=== PATIENT | male | born 1960 | race Hispanic/Latino ===

== ENCOUNTER 2019-08-29 10:06 | Emergency (ER) | payer OTHER | END 2019-08-29 10:58 | disposition home or self-care (01) | LOC: ERS 10:06 | DX: R09.89 Other specified symptoms and signs involving the circulatory and respiratory systems (principal); E11.9 Type 2 diabetes mellitus without complications; I10 Essential (primary) hypertension; F17.210 Nicotine dependence, cigarettes, uncomplicated; Z79.899 Other long term (current) drug therapy; Z79.84 Long term (current) use of oral hypoglycemic drugs; Z20.828 Contact with and (suspected) exposure to other viral communicable diseases | CPT/HCPCS: 87635; 99283; U0003 ==

== ENCOUNTER 2019-10-12 10:36 | Emergency (ER) | payer OTHER, SELFPAY ==
[~2019-10-12 10:36] MED LIST: Iopamidol-370 76% 500 ML 1 ML ONE
[2019-10-12] MEDS ORDERED: Acetaminophen 500 MG TAB ONE (10:58)
[2019-10-12 11:29] LABS: #Basophils 0.1 thou/uL (0.0-0.2); #Eosinphils 0.2 thou/uL (0.0-0.7); #Lymphocytes 2.6 thou/uL (1.20-3.40); #Monocytes 0.5 thou/uL (0.11-0.59); #Neutrophils 4.8 thou/uL (1.40-6.50); %Basophils 0.7 % (0.0-1.0); %Lymphocytes 32.5 % (21.0-51.0); %Monocytes 5.9 % (0.0-10.0); %Neutrophils 58.9 % (42.0-75.0); Hemoglobin 16.3 g/dL (14.0-18.0); Mean Corpuscular HGB CONC 33.4 g/dL (32.0-36.0); Mean Corpuscular Hemoglobin 29.9 pg (27.0-31.0); Mean Corpuscular Volume 89.5 fL (78.0-98.0); Mean Platelet Volume 8.9 fL (7.4-10.4); Platelet Count 159 thou/uL (130-400); RBC Distribution Width 11.5 % (11.5-14.5); Red Blood Cell (RBC) Count 5.47 mill/uL (4.70-6.10); White Blood Cell (WBC) Count 8.1 thou/uL (4.8-10.8)
--- NOTE | 2019-10-12 11:29 | CT ---
CT Abdomen Pelvis W Con History: Right-sided back pain Comparison: None. Findings: Lung bases are clear. No pericardial effusion. Diffuse hepatic steatosis. Gallbladder is normal as well as the gallbladder. Pancreas is normal. Extensive atherosclerotic plaque throughout the aorta with left 40-50% luminal narrowing just distal to the inferior mesenteric artery takeoff. Renal arteries are patent. Moderate plaque of both iliac vessels. Celiac trunk is patent. Superior mesenteric artery origin is patent. There is a focal 50-60% narrowin g of the SMA for length of 1 cm 5 mm after the ostia. No hydronephrosis. No abnormal renal enhancing mass. The inferior mesenteric artery origin has high-grade narrowing. No acute osseous abnormality. No free intraperitoneal gas or fluid. The appendix is visualized and is normal. Mild wall thickening of the descending colon. Impression: 1. Mild wall thickening in the descending colon consistent with low-grade colitis. Minimal pericoloni c stranding. 2. High-grade diffuse hepatic steatosis. 3. Normal appendix. 4. Extensive atherosclerotic plaque with mild-moderate luminal narrowing of both the SMA and MATILDA as w ell as the distal abdominal aorta.
[2019-10-12 11:45] LABS: ALT (SGPT) 24 U/L (8-55); AST (SGOT) 14 U/L (5-34); Albumin 4.1 g/dL (3.5-5.0); Alkaline Phosphatase 143 U/L (40-110); Anion Gap 13 mmol/L (10-20); BUN (Urea Nitrogen) 12 mg/dL (8.4-25.7); Bilirubin, Total 0.4 mg/dL (0.2-1.2); Calc. Creatinine Clearance 0 mL/min (70-130); Calcium 8.9 mg/dL (7.8-10.44); Carbon Dioxide 22 mmol/L (22-29); Chloride 102 mmol/L (98-107); Estimated GFR-MDRD Greater than 90; Globulin 3.2 g/dL (2.4-3.5); Glucose 239 mg/dL (70-105); Lipase 19 U/L (8-78); Potassium 3.8 mmol/L (3.5-5.1); Protein, Total 7.3 g/dL (6.0-8.3); Sodium 133 mmol/L (136-145)
[2019-10-12 12:37] LABS: Bilirubin Negative (Negative); Blood, Urine Negative (Negative); Clarity Clear (Clear); Glucose, Urine (Dipstick) 300 mg/dL (Negative); Ketone, Urine Negative (Negative); Leukocyte Negative Leu/uL (Negative); Nitrite Negative (Negative); Protein, Urine (Dipstick) Negative (Neg-Trace); Specific Gravity, Urine 1.035 (1.002-1.036); Urobilinogen Normal mg/dL (Less than 2); pH, Urine 6.5 (5.0-9.0)
== END 2019-10-12 12:24 | disposition home or self-care (01) ==
LOC: ERS 10:36
DX: K52.9 Noninfective gastroenteritis and colitis, unspecified (principal); E11.9 Type 2 diabetes mellitus without complications; I10 Essential (primary) hypertension; F17.210 Nicotine dependence, cigarettes, uncomplicated; Z79.899 Other long term (current) drug therapy
CPT/HCPCS: 74177; 80053; 81003; 83690; 84484; 85025; 93005; 96360; Q9967

== ENCOUNTER 2021-03-11 14:05 | Outpatient (CLI) | payer OTHER ==
[2021-03-11 15:44] LABS: Hemoglobin 14.6 g/dL (13.5-17.5); Mean Corpuscular HGB CONC 32.9 g/dL (32.0-36.0); Mean Corpuscular Hemoglobin 29.5 pg (27.0-33.0); Mean Corpuscular Volume 89.7 fl (81.2-95.1); Platelet Count 177 10x3/uL (150-450); RBC Distribution Width 12.3 % (11.5-14.5); Red Blood Cell (RBC) Count 4.95 10x6/uL (4.32-5.72); White Blood Cell (WBC) Count 8.8 10x3/uL (3.5-10.5)
[2021-03-11 16:15] LABS: PTT 26.5 sec (22.0-33.0); Prothrombin Time 10.7 sec (9.5-12.1)
[2021-03-11 16:20] LABS: Anion Gap 15 mmol/L (10-20); BUN (Urea Nitrogen) 16 mg/dL (8.4-25.7); Calc. Creatinine Clearance 0 mL/min (70-130); Calcium 9.5 mg/dL (7.8-10.44); Carbon Dioxide 27 mmol/L (22-29); Chloride 102 mmol/L (98-107); Glucose 154 mg/dL (70-105); Sodium 140 mmol/L (136-145)
[2021-03-12 02:55] LABS: SARS-CoV-2 PCR by NAA Not Detected (NotDetected)
== END 2021-03-11 14:06 | disposition home or self-care (01) ==
LOC: LABBT 14:05
PROVIDERS: ATTEND Surgery
DX: Z01.812 Encounter for preprocedural laboratory examination (principal); M54.16 Radiculopathy, lumbar region; M48.061 Spinal stenosis, lumbar region without neurogenic claudication; Z20.822 Contact with and (suspected) exposure to COVID-19
CPT/HCPCS: 80048; 85027; 85610; 85730; U0003; U0005

== ENCOUNTER 2021-03-14 07:23 | Observation (INO) | payer OTHER ==
[2021-03-11 15:29] VITALS: BMI 27.4
[2021-03-14] MEDS ORDERED: ceFAZolin 2 GM/DEX 5% 100 ML BAG ONE (08:03)
[2021-03-14] MEDS ORDERED: Midazolam HCl 2 mg/2 ml Vial ONE (09:51)
[2021-03-14] MEDS ORDERED: HYDROmorphone 2 MG/ML VIAL ONE (09:51)
[2021-03-14] MEDS ORDERED: Sodium Chloride 0.9% 10 ML ONE (09:51)
[2021-03-14] MEDS ORDERED: Fentanyl 100 MCG/2 ML VIAL ONE ×4 (09:51→14:57)
[2021-03-14] MEDS ORDERED: Acetaminophen 325 MG TAB PO PRN (10:08)
[2021-03-14] MEDS ORDERED: traMADol HCl 50 MG TAB PO PRN (10:08)
[2021-03-14] MEDS ORDERED: HYDROcodone/Acetaminophen 7.5/325 mg Tablet PO PRN (10:08)
[2021-03-14] MEDS ORDERED: Acetaminophen/Codeine 30-300mg Tablet PO PRN (10:08)
[2021-03-14] MEDS ORDERED: Morphine 4 MG/ML VIAL SLOW IVP PRN (10:08)
[2021-03-14] MEDS ORDERED: Metoclopramide HCl 10 MG/2 ML VIAL ONE (10:11)
[2021-03-14] MEDS ORDERED: PROPOFOL 200 MG/20 ML VIAL ONE ×2 (10:11)
[2021-03-14] MEDS ORDERED: ePHEDrine 50 MG/ML VIAL ONE (10:11)
[2021-03-14] MEDS ORDERED: Phenylephrine 10 MG/ML VIAL ONE (10:11)
[2021-03-14] MEDS ORDERED: Rocuronium Bromide 10 MG/ML (10ML VIAL) ONE (10:11)
[2021-03-14] MEDS ORDERED: Dexamethasone 20 MG/5 ML VIAL ONE (10:11)
[2021-03-14] MEDS ORDERED: tiZANidine HCl 4 MG TAB PO PRN (10:11)
[2021-03-14] MEDS ORDERED: Lidocaine 1% PF 5 ML VIAL ONE (10:11)
[2021-03-14] MEDS ORDERED: Ondansetron PF 4 MG/2 ML Vial ONE (10:11)
[2021-03-14] MEDS ORDERED: Glycopyrrolate 0.2 MG/ML 5 ML SYRINGE ONE (10:11)
[2021-03-14] MEDS ORDERED: hydrALAZINE 20 MG/ML VIAL SLOW IVP PRN (10:12)
[2021-03-14] MEDS ORDERED: Promethazine HCl 25 MG/ML VIAL IVPB PRN (12:46)
[2021-03-14] MEDS ORDERED: Ondansetron HCl/PF 4 MG/2 ML Vial IVP PRN (12:46)
[2021-03-14] MEDS ORDERED: Promethazine HCl 25 MG/ML VIAL IM PRN (12:46)
[2021-03-14] MEDS ORDERED: ceFAZolin Sodium/D5W 2 GM in Premix Bag 1 BAG IVPB SCH (14:00)
[2021-03-14] MEDS: Gabapentin 300 MG CAP PO SCH ×2 (16:25→20:49)
[2021-03-14] MEDS: Sodium Chloride 0.9% 1,000 ML IV SCH ×2 (16:26→22:19)
[2021-03-14] MEDS: glipiZIDE 10 MG TAB PO SCH (16:42)
[2021-03-14] MEDS ORDERED: metFORMIN 500 MG TAB PO SCH (17:00)
[2021-03-14] MEDS: ceFAZolin Sodium/D5W 2 GM in Premix Bag 1 BAG IVPB SCH (17:34)
[2021-03-14] MEDS: Atenolol 25 MG TAB PO SCH (20:49)
[2021-03-15] MEDS: ceFAZolin Sodium/D5W 2 GM in Premix Bag 1 BAG IVPB SCH (01:40)
[2021-03-15] MEDS ORDERED: metFORMIN 500 MG TAB PO SCH (08:00)
[2021-03-15] MEDS ORDERED: Lisinopril 20 MG TAB PO SCH (09:00)
[2021-03-15] MEDS ORDERED: Pioglitazone HCl 15 MG TAB PO SCH (09:00)
[2021-03-15] MEDS: Gabapentin 300 MG CAP PO SCH (09:11)
[2021-03-15] MEDS: glipiZIDE 10 MG TAB PO SCH (09:11)
[2021-03-15] MEDS: Atenolol 25 MG TAB PO SCH (09:11)
[2021-03-15 12:24] VITALS: BP 105/69; TEMP 98.4
== END 2021-03-15 11:40 | disposition home or self-care (01) ==
LOC: SDC 07:23 → SURG B 10:13
PROVIDERS: ADMIT Surgery; ATTEND Surgery
PROC: 01NB0ZZ Release Lumbar Nerve, Open Approach (ICD-10-PCS; principal; 2021-03-14)
PROC: 0SB20ZZ Excision of Lumbar Vertebral Disc, Open Approach (ICD-10-PCS; 2021-03-14)
DX: M48.062 Spinal stenosis, lumbar region with neurogenic claudication (principal); M51.16 Intervertebral disc disorders with radiculopathy, lumbar region; Z79.02 Long term (current) use of antithrombotics/antiplatelets; Z79.82 Long term (current) use of aspirin; Z79.84 Long term (current) use of oral hypoglycemic drugs; Z79.899 Other long term (current) drug therapy
CPT/HCPCS: 76000; 96365; 96375; 96376; G0378; J1100; J1170; J2250; J2270; J2370; J2405; J2704; J2765; J3010; J3370; J3490; J7050